=== PATIENT | male | born 1975 | race Caucasian/White ===

== ENCOUNTER 2023-06-11 00:55 | Emergency (ER) | payer SELFPAY ==
[2023-06-11] MEDS ORDERED: Aspirin 81 MG Tab.Chew PO ONE (01:07)
[2023-06-11 01:15] LABS: BASOPHILS ABSOLUTE AUTO 0.02 K/mm3 (0.01-0.08); BASOPHILS PERCENT AUTO 0.1 % (0.1-1.2); EOSINOPHILS ABSOLUTE AUTO 0.42 K/mm3 (0.04-0.54); EOSINOPHILS PERCENT AUTO 2.7 (0.8-7.0); HEMATOCRIT 44.8 % (40.1-51.0); HEMOGLOBIN 16.1 gm/dl (13.7-17.5); IMMATURE GRAN ABSOLUTE AUTO 0.03 K/mm3 (0.00-0.10); IMMATURE GRAN PERCENT AUTO 0.2 % (<=1.0); LYMPHOCYTES ABSOLUTE AUTO 3.19 K/mm3 (1.32-3.57); LYMPHOCYTES PERCENT AUTO 20.3 % (21.8-53.1); MEAN CORPUSCULAR HEMOGLOBIN 34.9 pg (25.7-32.2); MEAN CORPUSCULAR HGB CONC 35.9 g/dl (32.2-35.5); MEAN CORPUSCULAR VOLUME 97.2 fl (79.0-92.2); MEAN PLATELET VOLUME 9.7 fl (9.4-12.3); MONOCYTES ABSOLUTE AUTO 1.13 K/mm3 (0.30-0.82); MONOCYTES PERCENT AUTO 7.2 % (5.3-12.2); NEUTROPHILS ABSOLUTE AUTO 10.96 K/mm3 (1.78-5.38); NEUTROPHILS PERCENT AUTO 69.5 % (34.0-67.9); PLATELET COUNT,PLT 234 K/mm3 (163-337); RED BLOOD CELL COUNT 4.61 M/mm3 (4.63-6.08); WHITE BLOOD CELL COUNT,WBC 15.75 K/mm3 (4.23-9.07)
[2023-06-11 01:32] LABS: D-DIMER QUANTITATIVE 0.22 mg/L (0.19-0.50)
[2023-06-11 01:35] LABS: INR < 0.93
[2023-06-11 01:39] LABS: ALBUMIN 3.7 g/dl (3.4-5.0); ANION GAP 13.9 (5-15); BILIRUBIN TOTAL 0.2 mg/dL (0.2-1.0); CALCIUM 9.2 mg/dL (8.5-10.1); EST CRCL DRUG DOSING (CG) 93.28 mL/min; POTASSIUM,K 3.9 mEq/L (3.5-5.1); PROTEIN TOTAL,TP 7.4 g/dl (6.4-8.2)
== END 2023-06-11 02:12 | disposition home or self-care (01) ==
LOC: JD.ED 00:55
DX: R07.89 Other chest pain (principal)
CPT/HCPCS: 36415; 71045; 80053; 84484; 85025; 85379; 85610; 93005; 99285; A9270; 93010; 99283